=== PATIENT | female | born 1940 | race Caucasian/White ===

== ENCOUNTER 2018-03-18 19:34 | Observation (INO) | payer MEDICARE, OTHER ==
[~2018-03-18] VITALS: Ht 165.1 cm; Wt 73.7 kg
[2018-03-18] MEDS ORDERED: PANTOPRAZOLE 40 MG 10ML VIAL IV STA (19:54)
[2018-03-18] MEDS ORDERED: ASPIRIN 81 MG CHEW TAB PO ONE (20:00)
[2018-03-18 20:15] LABS: BASOPHILS % 0.2 % (0.0-1.0); EOSINOPHILS # (AUTO) 0.1 (0.0-0.4); EOSINOPHILS % 0.9 % (0.0-6.0); HEMATOCRIT 36.9 % (34.2-44.1); HEMOGLOBIN 11.9 g/dL (12.0-16.0); LYMPHOCYTES # (AUTO) 1.8 (1.0-3.2); LYMPHOCYTES % 14.9 % (18.0-39.1); MEAN CORPUSCULAR HEMOGLOBIN 25.9 pg (28-32); MEAN CORPUSCULAR HGB CONC 32.2 g/dL (31-35); MEAN CORPUSCULAR VOLUME 80.4 fL (81-99); MONOCYTES # (AUTO) 0.6 (0.2-0.8); MONOCYTES % 5.2 % (4.4-11.3); NEUTROPHILS # (AUTO) 9.3 (2.1-6.9); NEUTROPHILS % 78.4 % (38.7-80.0); PLATELET COUNT 294 x10e3/uL (140-360); RED BLOOD COUNT 4.59 x10e6/uL (3.6-5.1); RED CELL DISTRIBUTION WIDTH 13.5 % (11.7-14.4)
[2018-03-18 20:29] LABS: INR 0.91; PROTHROMBIN TIME 13.1 seconds (11.9-14.5)
[2018-03-18 20:30] LABS: PARTIAL THROMBOPLASTIN TIME 27.5 seconds (23.8-35.5)
[2018-03-18 20:39] LABS: ALANINE AMINOTRANSFERASE 10 IU/L (0-55); ALBUMIN 3.6 g/dL (3.5-5.0); ALBUMIN/GLOBULIN RATIO 1.2 (0.8-2.0); ALKALINE PHOSPHATASE 75 IU/L (40-150); ANION GAP 8.9 mmol/L (8-16); BLOOD UREA NITROGEN 21 mg/dL (7-26); BUN/CREATININE RATIO 18 (6-25); CALCIUM 10.2 mg/dL (8.4-10.2); CARBON DIOXIDE 34 mmol/L (22-29); CHLORIDE 100 mmol/L (98-107); CREATINE KINASE 74 IU/L (29-168); CREATININE, SERUM 1.14 mg/dL (0.57-1.11); EST GLOMERULAR FILTRATION RATE 46 ML/MIN (60-); GLUCOSE 120 mg/dL (74-118); SODIUM 140 mmol/L (136-145)
[2018-03-18 20:50] LABS: B-TYPE NATRIURETIC PEPTIDE2 111.3 pg/mL (0-100)
[2018-03-18 20:54] LABS: POTASSIUM 2.9 mmol/L (3.5-5.1)
[2018-03-18 20:58] LABS: BILIRUBIN,URINE NEGATIVE (NEGATIVE); CLARITY,URINE HAZY (CLEAR); COLOR,URINE YELLOW (YELLOW); KETONES,URINE NEGATIVE (NEGATIVE); LEUKOCYTE ESTERASE ,URINE 1+ (NEGATIVE); NITRITE,URINE NEGATIVE (NEGATIVE); PROTEIN,URINE DIPSTICK NEGATIVE (NEGATIVE); URINE UROBILINOGEN 0.2 mg/dL (0.2 - 1)
[2018-03-18 20:59] LABS: THYROID STIMULATING HORMONE 2.272 uIU/mL (0.350-4.940)
[2018-03-18 21:08] LABS: BACTERIA,URINE FEW /HPF; EPITHELIAL CELLS,URINE FEW /LPF; RBC,URINE 0-5 /HPF (0-5)
--- NOTE | 2018-03-18 21:17 | Diagnostic Imaging Report ---
EXAMINATION: CHEST SINGLE (PORTABLE) INDICATION: Chest pain, shortness of breath COMPARISON: None FINDINGS: TUBES and LINES: None. LUNGS: Lungs are well inflated. Lungs are clear. There is no evidence of pneumonia or pulmonary edema. PLEURA: No pleural effusion or pneumothorax. HEART AND MEDIASTINUM: The cardiomediastinal silhouette is unremarkable. BONES AND SOFT TISSUES: No acute osseous lesion. Soft tissues are unremarkable. UPPER ABDOMEN: No free air under the diaphragm. IMPRESSION: No acute thoracic abnormality. Signed by: Dr. Héctor Eller M.D. on 03/18/2018 9:14 PM
--- NOTE | 2018-03-18 21:20 | Diagnostic Imaging Report ---
EXAM: ABDOMEN COMP INCL UPR or DECUB DATE: 03/18/2018 8:35 PM Time stamp on exam: 2039 5:00 PM INDICATION: Bloated COMPARISON: None FINDINGS: LINES/TUBES: None BOWEL PATTERN: No evidence for clear obstruction. However, there are several proximal small bowel loops that appear distended, the largest measuring 3.8 cm in diameter. SOFT TISSUES: No abnormal calcifications. No mass effect. LUNG BASES: The lung bases are clear BONES: Degenerative changes of the lower lumbar spine IMPRESSION: 1. Distention of the proximal small bowel and air fluid level of the stomach suggests slow transit time. Correlation for gastroenteritis is recommended. 2. No clear evidence of obstruction at this time. If continued clinical concern, CT of the abdomen and pelvis can be obtained after IV contrast administration Signed by: Dr. Héctor Eller M.D. on 03/18/2018 9:16 PM
--- NOTE | 2018-03-18 21:25 | Diagnostic Imaging Report ---
Examination: CT BRAIN WITHOUT CONTRAST History:Dizziness for one day. Lightheadedness. Comparison studies:None Technique: Axial images were obtained from the skull base to the vertex. Coronal and sagittal images reconstructed from the axial data. Dose modulation, iterative reconstruction, and/or weight based adjustment of the mA/kV was utilized to reduce the radiation dose to as low as reasonably achievable. Intravenous contrast: None Findings: Scalp: No abnormalities. 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 No fractures, blastic or lytic lesions. Brain sulci: Appropriate for age. Ventricles: No hydrocephalus. Extra-axial space: No abnormalities. Parenchyma: Absence of the corpus callosum with a high riding third ventricle and colpocephalic appearance of the lateral ventricles. There is hypoattenuation in the inferior and mid yamini, likely representing a chronic lacunar infarct, white matter microvascular ischemic change or less likely demyelinating disease. No masses, hemorrhage, or acute or chronic cortical based vascular insults.. Sellar/suprasellar region: No abnormalities. Craniocervical junction: Patent foramen magnum. No Chiari one malformation. Incidental findings: None. Impression: 1. No acute intracranial abnormalities. 2. Agenesis of the corpus callosum. 3. Findings as described above in the yamini could represent a chronic lacunar infarct, microvascular ischemic change or less likely demyelinating disease. Signed by: Dr. Kasie Diop M.D. on 03/18/2018 9:21 PM
[2018-03-18] MEDS ORDERED: KCL 20MEQ/.9 SOD CHL 1,000 ML IV ONE (21:45)
[2018-03-18] MEDS: CEFTRIAXONE SOD 1 GM VIAL IV SCH (21:56)
--- NOTE | 2018-03-18 23:04 | Diagnostic Imaging Report ---
EXAM: CT Abdomen and Pelvis WITHOUT contrast INDICATION: Abdominal pain COMPARISON: None. TECHNIQUE: Abdomen and pelvis were scanned utilizing a multidetector helical scanner from the lung base to the pubic symphysis without administration of IV contrast. Absence of intravenous contrast decreases sensitivity for detection of focal lesions and vascular pathology. Coronal and sagittal reformations were obtained. Routine protocol was performed. IV CONTRAST: None. ORAL CONTRAST: None RADIATION DOSE: Total DLP: 492.47 mGy*cm Estimated effective dose: (DLP x 0.015 x size factor) mSv COMPLICATIONS: None FINDINGS: LINES and TUBES: None. LOWER THORAX: Unremarkable HEPATOBILIARY: No focal hepatic lesions. No biliary ductal dilation. GALLBLADDER: No radio-opaque stones or sludge. No wall thickening. SPLEEN: No splenomegaly. PANCREAS: No focal masses or ductal dilatation. ADRENALS: No adrenal nodules KIDNEYS/URETERS: No hydronephrosis. No cystic or solid mass lesions. No stones. GI TRACT: No abnormal distention, wall thickening, or evidence of bowel obstruction. Appendix is normal. PELVIC ORGANS/BLADDER: There are postop changes of hysterectomy and bilateral oophorectomies. LYMPH NODES: Reactive lymphadenopathy and the mesenteric root adjacent to multiple small bowel loops. Otherwise, no evidence of retroperitoneal or pelvic adenopathy. VESSELS: There is mild atherosclerotic disease in the aorta and major arterial branches. PERITONEUM / RETROPERITONEUM: No free air or fluid. BONES: Unremarkable. SOFT TISSUES: Unremarkable. IMPRESSION: 1. Findings are compatible with enteritis with reactive lymph nodes versus mesenteric adenitis. 2. Otherwise, no additional findings to suggest acute intra-abdominal or pelvic abnormality. Signed by: Dr. Héctor Eller M.D. on 03/18/2018 11:01 PM
[2018-03-18] MEDS ORDERED: MOTRIN800 MG PO (23:15)
[2018-03-18] MEDS ORDERED: BISOPROLOL-HCT1 EAC1 PO (23:15)
[2018-03-18] MEDS ORDERED: FUROSEMIDE20 MG PO (23:15)
[2018-03-18] MEDS ORDERED: PRAMIPEXOLE DIHY1 MG PO (23:15)
[2018-03-18] MEDS ORDERED: MELOXICAM15 MG PO (23:15)
[2018-03-18] MEDS ORDERED: POTASSIUM CHLORIDE 20 MEQ TAB CR PO STA (23:16)
[2018-03-18] MEDS ORDERED: POTASSIUM CHLORIDE 20 MEQ TAB CR PO ONE (23:18)
[2018-03-18] MEDS: ENOXAPARIN SODIUM INJ 100 MG/ML SYR SC SCH (23:23)
[2018-03-18] MEDS ORDERED: ZYMAXID2.5 ML OU (23:27)
[2018-03-18] MEDS ORDERED: OMNIPRED10 ML OD (23:27)
[2018-03-18] MEDS ORDERED: CELEBREX200 MG PO (23:27)
[2018-03-19] VITALS (9 sets, daily range): BP systolic 115–150; BP diastolic 56–72
[2018-03-19] MEDS: ONDANSETRON HCL INJ 2 MG/ML VIAL IV PRN ×2 (04:45→10:06)
[2018-03-19] MEDS: MORPHINE SULFATE 2 MG/ML SYR IV PRN ×3 (04:52→20:15)
[2018-03-19 06:19] LABS: BASOPHILS % 0.3 % (0.0-1.0); EOSINOPHILS # (AUTO) 0.2 (0.0-0.4); EOSINOPHILS % 1.5 % (0.0-6.0); HEMATOCRIT 32.9 % (34.2-44.1); HEMOGLOBIN 10.7 g/dL (12.0-16.0); LYMPHOCYTES # (AUTO) 1.4 (1.0-3.2); LYMPHOCYTES % 14.4 % (18.0-39.1); MEAN CORPUSCULAR HEMOGLOBIN 26.4 pg (28-32); MEAN CORPUSCULAR HGB CONC 32.5 g/dL (31-35); MONOCYTES # (AUTO) 0.5 (0.2-0.8); MONOCYTES % 5.4 % (4.4-11.3); NEUTROPHILS # (AUTO) 7.7 (2.1-6.9); NEUTROPHILS % 78.1 % (38.7-80.0); PLATELET COUNT 216 x10e3/uL (140-360); RED BLOOD COUNT 4.06 x10e6/uL (3.6-5.1); RED CELL DISTRIBUTION WIDTH 13.6 % (11.7-14.4)
[2018-03-19 06:48] LABS: CREATINE KINASE 52 IU/L (29-168)
[2018-03-19 07:25] LABS: ALANINE AMINOTRANSFERASE 9 IU/L (0-55); ALBUMIN/GLOBULIN RATIO 1.2 (0.8-2.0); ALKALINE PHOSPHATASE 67 IU/L (40-150); ANION GAP 8.1 mmol/L (8-16); BLOOD UREA NITROGEN 17 mg/dL (7-26); BUN/CREATININE RATIO 21 (6-25); CALCIUM 8.4 mg/dL (8.4-10.2); CARBON DIOXIDE 30 mmol/L (22-29); CHLORIDE 103 mmol/L (98-107); CHOL/HDL RATIO 4.7 (3.0-3.6); CHOLESTEROL 145 MD/DL (0-199); CREATININE, SERUM 0.81 mg/dL (0.57-1.11); EST GLOMERULAR FILTRATION RATE > 60 ML/MIN (60-); GLUCOSE 102 mg/dL (74-118); HDL CHOLESTEROL 31 MG/DL (40-60); LDL CHOLESTEROL 87 MG/DL (60-130); POTASSIUM 3.1 mmol/L (3.5-5.1); SODIUM 138 mmol/L (136-145); TRIGLYCERIDES 133 MG/DL (0-149)
[2018-03-19] MEDS: CEFTRIAXONE SOD 1 GM VIAL IV SCH ×2 (10:06→22:21)
[2018-03-19] MEDS: ENOXAPARIN SODIUM INJ 100 MG/ML SYR SC SCH ×2 (10:06→22:21)
[2018-03-19] MEDS: ASPIRIN 81 MG ENTERIC COATED PO SCH (10:06)
--- NOTE | 2018-03-19 11:23 | Diagnostic Imaging Report ---
Ventilation/perfusion lung scan Clinical Information: 77 F with dyspnea, SOB and pleuritic chest pain; elevated D-dimer Comparison: Chest radiograph 03/18/2018 Discussion: Xenon-133 gas 13.2 mCi was administered via inhalation. Dynamic images of the lungs in the posterior projection were obtained through single breath, equilibrium, and washout phases. Distribution of tracer activity is irregular throughout the lungs. There are no segmental ventilatory defects. Washout of tracer is diffusely delayed with diffuse air trapping. Perfusion images of the lungs were obtained in multiple projections following intravenous administration of approximately 6.1 mCi of Tc-99m MAA. Distribution of tracer is irregular throughout the lungs. The contours of the lungs are well demarcated. There are no segmental perfusion defects of any size. The cardiomediastinal silhouette is unremarkable. Impression: Scan findings represent a VERY LOW probability for acute pulmonary embolic disease based on the PIOPED II criteria. Scan evidence of obstructive lung disease. Signed by: Dr. Sindhu Hein M.D. on 03/19/2018 11:20 AM
[2018-03-19] MEDS ORDERED: POTASSIUM CHLORIDE 20 MEQ TAB CR PO STA (12:14)
--- NOTE | 2018-03-19 13:40 | History and Physical ---
Fantasma is a 77-year-old woman who presented to the emergency room on the afternoon of the with complaint of neck, shoulder and arm pain. HISTORY OF PRESENT ILLNESS: Patient reports she saw Dr. Angela in the office last week for these symptoms and she cannot remember the name of his diagnosis, but he gave her ibuprofen 800 mg that initially helped, but then she felt that something was given her "drunken feeling," then her shoulders and arms began to hurt more. PAST MEDICAL HISTORY: Significant for diagnosis of irritable bowel syndrome several years ago. Dr. Main has given her dicyclomine for this. She takes half teaspoon with each meal. She had remote hysterectomy and in 1990 had removal an ovary, which had large benign tumor that she reports is weighing 16 pounds. She denies diabetes. She has been using bisoprolol 5/6.25 daily for elevated blood pressure readings and she has had some ankle swelling for which she takes furosemide 20 mg twice a day at home. She has used pramipexole for restless leg, but does not currently use it. 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 REVIEW OF SYSTEMS: Cardiac; she does not know of any cardiac problem, never had chest pain. PHYSICAL EXAMINATION GENERAL: At this time, she is a pleasant and alert woman who is anxious and sad. Reports she has been crying this morning. VITAL SIGNS: Blood pressure 124/58, pulse is 77 and regular. HEENT: Unremarkable. NECK: No jugular venous distention or bruits. THORAX: Heart sounds S1, S2 are equal. No murmurs. RESPIRATORY: Clear. ABDOMEN: Protuberant with large healed midline incision. Active bowel sounds. Nontender. EXTREMITIES: No cyanosis, clubbing, or edema at this time. PERTINENT STUDIES: Urinalysis shows 11 to 20 white cells per high-power field with leukocyte esterase positive. Her D-dimer was elevated, but her V/Q scan shows very low probability of embolus. Troponins are normal. BNP is slightly elevated at 111. Glucose is 120 and 102. CAT scan of the head shows possible yamini defect. CAT scan of the abdomen shows regional enteritis with reactive lymphadenopathy. Chest x-ray is unremarkable. ASSESSMENT 1. Cervical radiculopathy. 2. Enteritis. 3. Urinary tract infection. 4. Rule out congestive heart failure. PLAN: Will consult Dr. Angela for the cervical spine problem and Dr. Main to address the enteritis, previously called irritable bowel syndrome. She is receiving ceftriaxone for urinary tract infection and repleting potassium for the original hypokalemia of potassium 2.9, today is 3.1. Further management based on clinical course. Job#: [id number] PEPITO cc:DR. AIRAM MAIN
[2018-03-19] MEDS: BISOPROLOL FUMARATE 10 MG TAB PO SCH (14:24)
[2018-03-19] MEDS: DICYCLOMINE HCL 10 MG CAP PO SCH ×3 (14:24→20:15)
[2018-03-19 16:32] LABS: CREATINE KINASE 54 IU/L (29-168)
[2018-03-19] MEDS ORDERED: SODIUM CHLORIDE 0.9% 250ML 250 ML ONE (22:26)
[2018-03-19] MEDS: METRONIDAZOLE 500MG/NS 100ML 100 ML IV SCH (22:33)
--- NOTE | 2018-03-19 23:27 | Consultation ---
DATE OF CONSULTATION: March 19, 2018 GASTROENTEROLOGY CONSULTATION REFERRING PHYSICIAN: Dr. Choudhary. REASON FOR CONSULTATION: Enteritis, abnormal CT abdomen. HISTORY OF PRESENT ILLNESS: Ms. Meek is a very pleasant 77-year-old woman who follows with my colleague, Dr. Ham. She is being treated for irritable bowel by both Dr. Ham and Dr. Thomas, her primary care physician. She notes that if she avoids triggers such as tomatoes then she has fairly normal bowels. She is maintained on liquid dicyclomine and takes this with improvement in her symptoms too. Over the past month however she has been feeling more bloated. She is actually in the ER with neck, shoulder, arm pain and shortness of breath. She is noted to have cervical radiculopathy. Dr. Angela has seen her. She denies any diarrhea or bowel habit change unless she eats her trigger foods. She has not had any bleeding, nausea or vomiting. She feels generally bloated like she has gas or is but does not pass excessive gas and does not have any current abdominal discomfort. PAST MEDICAL HISTORY 1. Irritable bowel. 2. Restless legs. 3. Lower extremity swelling. 4. Hysterectomy. 5. Oophorectomy. 6. Hypertension. MEDICATION AND ALLERGIES: REVIEWED, PLEASE SEE MAR, MEDICATION RECONCILIATION FORM. SOCIAL: No alcohol, tobacco, or illicit substance. FAMILY HISTORY: Noncontributory. REVIEW OF SYSTEMS: A 10-system review is positive as mentioned in HPI, otherwise unremarkable. PHYSICAL EXAMINATION GENERAL: Pleasant, alert, oriented, in no acute distress. HEENT: Pupils are equal, round, and reactive to light. NECK: Supple. LUNGS: Clear. CARDIOVASCULAR: S1, S2. ABDOMEN: Soft but a little bit protuberant. It is tympanitic consistent with gas. She is nontender. Normal bowel sounds. No organomegaly. EXTREMITIES: No clubbing or cyanosis. PSYCH: Calm, cooperative. NEUROLOGIC: Nonfocal. HEM/ONC: No bruising or adenopathy. Electronic record reviewed for laboratory and radiologic studies as well as history. ASSESSMENT 1. Enteritis with mild nonspecific lymphadenopathy. 2. Cervical radiculopathy. 3. Urinary tract infection. 4. Edema. PLAN: At the current time, I am not sure if this is an acute or chronic problem. Her GI symptoms certainly sound like irritable bowel syndrome. She does have significant gas which could be an overgrowth type problem. She also is noted to be anemic which is normocytic. Apparently has had scopes in the past. I would like to add Flagyl to her antibiotics and monitor her progress. It may be that we need to repeat the imaging as an outpatient or send off specialized testing for possible underlying inflammatory bowel. It is also noted that on her KUB she had gastric distention. This did not look like gastroenteritis and slow transit. Reglan may be of some benefit, although associate without a formal diagnosis. We will see how she does with addition of Flagyl. Thank you very much for asking us to see Ms. Meek. Any questions or concerns, please do not hesitate to contact me. Will follow with you. Job#: [id number] CF
[2018-03-20] VITALS: BP 146/65
[2018-03-20 04:00] VITALS: BP 131/60
[2018-03-20] MEDS: METRONIDAZOLE 500MG/NS 100ML 100 ML IV SCH (06:20)
[2018-03-20] MEDS: MORPHINE SULFATE 2 MG/ML SYR IV PRN (06:20)
[2018-03-20 06:34] LABS: BASOPHILS % 0.4 % (0.0-1.0); EOSINOPHILS # (AUTO) 0.2 (0.0-0.4); HEMATOCRIT 33.9 % (34.2-44.1); HEMOGLOBIN 10.9 g/dL (12.0-16.0); LYMPHOCYTES # (AUTO) 1.9 (1.0-3.2); LYMPHOCYTES % 26.2 % (18.0-39.1); MEAN CORPUSCULAR HEMOGLOBIN 26.4 pg (28-32); MEAN CORPUSCULAR HGB CONC 32.2 g/dL (31-35); MEAN CORPUSCULAR VOLUME 82.1 fL (81-99); MONOCYTES # (AUTO) 0.4 (0.2-0.8); MONOCYTES % 5.5 % (4.4-11.3); NEUTROPHILS # (AUTO) 4.8 (2.1-6.9); NEUTROPHILS % 65.4 % (38.7-80.0); PLATELET COUNT 211 x10e3/uL (140-360); RED BLOOD COUNT 4.13 x10e6/uL (3.6-5.1); RED CELL DISTRIBUTION WIDTH 13.4 % (11.7-14.4)
[2018-03-20] MEDS: DICYCLOMINE HCL 10 MG CAP PO SCH (09:00)
[2018-03-20] MEDS: BISOPROLOL FUMARATE 10 MG TAB PO SCH (09:00)
[2018-03-20] MEDS: ASPIRIN 81 MG ENTERIC COATED PO SCH (09:00)
[2018-03-20 09:03] VITALS: BP 140/62
[2018-03-20] MEDS: CEFTRIAXONE SOD 1 GM VIAL IV SCH (09:45)
[2018-03-20] MEDS: ENOXAPARIN SODIUM INJ 100 MG/ML SYR SC SCH (09:55)
[2018-03-20 10:22] LABS: ANION GAP 26.1 mmol/L (8-16); BLOOD UREA NITROGEN 11 mg/dL (7-26); BUN/CREATININE RATIO 15 (6-25); CALCIUM 7.6 mg/dL (8.4-10.2); CARBON DIOXIDE 14 mmol/L (22-29); CHLORIDE 104 mmol/L (98-107); CREATININE, SERUM 0.74 mg/dL (0.57-1.11); EST GLOMERULAR FILTRATION RATE > 60 ML/MIN (60-); GLUCOSE 89 mg/dL (74-118); POTASSIUM 4.1 mmol/L (3.5-5.1); SODIUM 140 mmol/L (136-145)
[2018-03-20 12:18] VITALS: BP 147/65
[2018-03-20] MEDS ORDERED: FLAGYL500 MG PO (13:32)
--- NOTE | 2018-03-20 16:13 | Discharge Summary ---
HISTORY OF PRESENT ILLNESS: Ms. Meek is a complex 77-year-old woman who presented to the emergency room on the afternoon of the with multiple medical problems including shoulder pain, abdominal discomfort and the finding of hypokalemia. HOSPITAL COURSE: Patient was given potassium supplementation due to the fact she was taking furosemide at home. She was given analgesics for neck and shoulder pains. Her urinalysis suggested urinary tract infection, and she was given Rocephin. However, those cultures proved to be negative. Repeat potassium value showed that her potassium has now returned to normal. She was seen in consultation by Dr. Angela, who felt that she needed physical therapy for her neck and shoulder pains. She will continue on nonsteroidal anti-inflammatory. She was seen in consultation by Dr. Levy, who reviewed the CAT scan of the abdomen and felt a trial of Flagyl for possible enteritis would be recommended. Today the patient is feeling some better, still with some shoulder discomfort and some lack of appetite, but she is discharged to home to add Flagyl 500 mg every 8 hours for 1 week and continue her other medicines with the exception of furosemide. She will follow up with Dr. Levy and Dr. Angela in 7 to [address] Thomas on a regular basis. ADDENDUM: Echocardiogram showed normal left ventricular function with mild mitral regurgitation. She does not have a general diagnosis of congestive heart failure. DISCHARGE DIAGNOSES: 1. Neck and shoulder pain. 2. Hypokalemia. 3. Enteritis. 4. Hypertension. MÓNICA CONDE MD Job#: [id number] EV cc:DO CHRISTI KAPLAN MD RACHEL SCHIESSER, MD
--- OUTSIDE RECORDS SUMMARY | 2018-03-27 11:52 | XMS REPORT ---
Author Author [facility] Address Unknown Phone Unavailable Care Team Providers Care [employer] Name Role Phone Sneha CONDE Unavailable Unavailable Problems This patient has no known problems. Allergies, Adverse Reactions, Alerts This patient has no known allergies or adverse reactions. Medications This patient has no known medications. Results Test Description Test Time Test Comments Text Results Atomic Results Result Comments VQ LUNG SCAN VENT PERFUSION 2018-03-19 11:17:00 [place] [address] Patient Name: FATOUMATA SOTO MR #: [id number] : 1940 Age/Sex: 77/F Req #: [id number] [facility] Physician: MÓNICA CONDE MD Ordered by: DANY TENORIO MD Report #: [id number] Location: MED/SURG Room/Bed: [facility] Procedure: [id number] NM/VQ LUNG SCAN VENT PERFUSION Exam Date: Exam Time: REPORT STATUS: Signed Ventilation/perfusion lung scan Clinical Information: 77 F with dyspnea, SOB and pleuritic chest pain; elevated D-dimer Comparison: Chest radiograph 03/18/2018 Discussion: Xenon-133 gas 13.2 mCi was administered via inhalation. Dynamic images of the lungs in the posterior projection were obtained through single breath, equilibrium, and washout phases. Distribution of tracer activity is irregular throughout the lungs. There are no segmental ventilatory defects. Washout of tracer is diffusely delayed with diffuse air trapping. Perfusion images of the lungs were obtained in multiple projections following intravenous administration of approximately 6.1 mCi of Tc-99m MAA. Distribution of tracer is irregular throughout the lungs. The contours of the lungs are well demarcated. There are no segmental perfusion defects of any size. The cardiomediastinal silhouette is unremarkable. Impression: Scan findings represent a VERY LOW probability for acute pulmonary embolic disease based on the PIOPED II criteria. Scan evidence of obstructive lung disease. Signed by: Dr. Hira Hein M.D. on 03/19/2018 11:20 AM Dictated By: HIRA HEIN MD Tawanna ctronically Signed By: HIRA HEIN MD on 03/19/181119 Transcribed By: VALERIA on 03/19/181119 COPY TO: DANY TENORIO MD CT ABDOMEN/PELVIS WO 2018-03-18 22:50:00 [place] [address] Patient Name: FATOUMATA SOTO MR #: [id number] : 1940 Age/Sex: 77/F Req #: [id number] Adm Physician: Ordered by: DANY TENORIO MD Report #: [id number] Location: ER Room/Bed: Procedure: [id number] CT/CT ABDOMEN/PELVIS WO Exam Date: 03/18/18 Exam Time: 2156 REPORT STATUS: Signed EXAM: CT Abdomen and Pelvis WITHOUT contrast INDICATION: Abdominal pain COMPARISON: None. TECHNIQUE: Abdomen and pelvis were scanned utilizing a multidetector helical scanner from the lung base to the pubic symphysis without administration of IV contrast. Absence of intravenous contrast decreases sensitivity for detection of focal lesions and vascular pathology. Coronal and sagittal reformations were obtained. Routine protocol was performed. IV CONTRAST: None. ORAL CONTRAST: None RADIATION DOSE: Total DLP: 492.47 mGy*cm Estimated effective dose: (DLP x 0.015 x size factor) mSv COMPLICATIONS: None FINDINGS: LINES and TUBES: None. LOWER THORAX: Unremarkable HEPATOBILIARY: No focal hepatic lesions. No biliary ductal dilation. GALLBLADDER: No radio-opaque stones or sludge. No wall thickening. SPLEEN: No splenomegaly. PANCREAS: No focal masses or ductal dilatation. ADRENALS: No adrenal nodules KIDNEYS/URETERS: No hydronephrosis. No cystic or solid mass lesions. No stones. GI TRACT: No abnormal distention, wall thickening, or evidence of bowel obstruction. Appendix is normal. PELVIC ORGANS/BLADDER: There are postop changes of hysterectomy and bilateral oophorectomies. LYMPH NODES: Reactive lymphadenopathy and the mesenteric root adjacent to multiple small bowel loops. Otherwise, no evidence of retroperitoneal or pelvic adenopathy. VESSELS: There is mild atherosclerotic disease in the aorta and major arterial branches. PERITONEUM / RETROPERITONEUM: No free air or fluid. BONES: Unremarkable. SOFT TISSUES: Unremarkable. IMPRESSION: 1. Findings are compatible with enteritis with reactive lymph nodes versus mesenteric adenitis. 2. Otherwise, no additional findings to suggest acute intra- abdominal or pelvic abnormality. Signed by: Dr. Héctor Eller M.D. on 03/18/2018 11:01 PM Dictated By: HÉCTOR ORDOÑEZ MD 00 Transcribed By: VALERIA on 03/18/182300 COPY TO: DANY TENORIO MD CT BRAIN WO 2018-03-18 21:18:00 [place] [address] Patient Name: FATOUMATA SOTO MR #: [id number] : 1940 Age/Sex: 77/F Req #: [id number] Adm Physician: Ordered by: DANY TENORIO MD Report #: [id number] Location: ER Room/Bed: Procedure: [id number] CT/CT BRAIN WO Exam Date: 03/18/18 Exam Time: 2019 REPORT STATUS: Signed Examination: CT BRAIN WITHOUT CONTRAST History:Dizziness for one day. Lightheadedness. Comparison studies:None Technique: Axial images were obtained from the skull base to the vertex. Coronal and sagittal images reconstructed from the axial data. Dose modulation, iterative reconstruction, and/or weight based adjustment of the mA/kV was utilized to reduce the radiation dose to as low as reasonably achievable. Intravenous contrast: None Findings: Scalp: No abnormalities. 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 No fractures, blastic or lytic lesions. Brain sulci: Appropriate for age. Ventricles: No hydrocephalus. Extra-axial space: No abnormalities. Parenchyma: Absence of the corpus callosum with a high riding third ventricle and c olpocephalic appearance of the lateral ventricles. There is hypoattenuation in the inferior and mid yamini, likely representing a chronic lacunar infarct, white matter microvascular ischemic change or less likely demyelinating disease. No masses, hemorrhage, or acute or chronic cortical based vascular insults.. Sellar/suprasellar region: No abnormalities. Craniocervical junction: Patent foramen magnum. No Chiari one malformation. Incidental findings: None. Impression: 1. No acute intracranial abnormalities. 2. Agenesis of the corpus callosum. 3. Findings as de scribed above in the yamini could represent a chronic lacunar infarct, microvascular ischemic change or less likely demyelinating disease. Signed by: Dr. Kasie Diop M.D. on 03/18/2018 9:21 PM Dictated By: KASIE WEST MD 20 Transcribed By: VALERIA on 03/18/182120 COPY TO: DANY TENORIO MD ABDOMEN COMP INCL UPR or 2018-03-18 21:14:[address] [place], [place] [address] Patient Name: FATOUMATA SOTO MR #: [id number] : 1940 Age/Sex: 77/F Req #: [id number] Adm Physician: Ordered by: DANY TENORIO MD Report #: [id number] Location: ER Room/Bed: Procedure: [id number] DX/ABDOMEN COMP INCL UPR or DECUB Exam Date: 03/18/18 Exam Time: 2044 REPORT STATUS: Signed EXAM: ABDOMEN COMP INCL UPR or DECUB DATE: 03/18/2018 8:35 PM Time stamp on exam: 2039 5:00 PM INDICATION: Bloated COMPARISON: None FINDINGS: LINES/TUBES: None BOWEL PATTERN: No evidence for clear obstruction. However, there are several proximal small bowel loops that appear distended, the largest measuring 3.8 cm in diameter. SOFT TISSUES: No abnormal calcifications. No mass effect. LUNG BASES: The lung bases are clear BONES: Degenerative changes of the lower lumbar spine IMPRESSION: 1. Distention of the proximal small bowel and air fluid level of the stomach suggests slow transit time. Correlation for gastroenteritis is recommended. 2. No clear evidence of obstruction at this time. If continued clinical concern, CT of the abdomen and pelvis can be obtained after IV contrast administration Signed by: Dr. Héctor Eller M.D. on 03/18/2018 9:16 PM Dictated By: HÉCTOR ORDOÑEZ MD 15 Transcribed By: VALERIA on 03/18/182115 COPY TO: DANY TENORIO MD CHEST SINGLE (PORTABLE) 2018-03-18 21:14:00 [facility] [address] [place], [place] [address] Patient Name: FATOUMATA SOTO MR #: [id number] : 1940 Age/Sex: 77/F Req #: [id number] [facility] Physician: Ordered by: DANY TENORIO MD Report #: [id number] Location: ER Room/Bed: Procedure: [id number] DX/CHEST SINGLE (PORTABLE) Exam Date: 03/18/18 Exam Time: 2024 REPORT STATUS: Signed EXAMINATION: CHEST SINGLE (PORTABLE) INDICATION: Chest pain, shortness of breath COMPARISON: None FINDINGS: TUBES and LINES: None. LUNGS: Lungs are well inflated. Lungs are clear. There is no evidence of pneumonia or pulmonary edema. PLEURA: No pleural effusion or pneumothorax. HEART AND MEDIASTINUM: The cardiomediastinal silhouette is unremarkable. BONES AND SOFT TISSUES: No acute osseous lesion. Soft tissues are unremarkable. UPPER ABDOMEN: No free air under the diaphragm. IMPRESSION: No acute thoracic abnormality. Signed by: Dr. Héctor Eller M.D. on 03/18/2018 9:14 PM Dictated By: HÉCTOR ORDOÑEZ MD 13 Transcribed By: VALERIA on 03/18/182113 COPY TO: DANY TENORIO MD
== END 2018-03-20 16:06 | disposition home or self-care (01) ==
LOC: ER 19:34 → INTOOBSV 23:51 → ERHOLD 23:51 → MED/SURG 03-19 01:14
PROVIDERS: ADMIT Internal Medicine Cardiovascular Disease; ATTEND Internal Medicine Cardiovascular Disease
DX: M54.12 Radiculopathy, cervical region (principal); R06.00 Dyspnea, unspecified; R07.9 Chest pain, unspecified; N30.00 Acute cystitis without hematuria; E87.6 Hypokalemia; K58.9 Irritable bowel syndrome, unspecified; Z88.0 Allergy status to penicillin; Z91.013 Allergy to seafood; Z91.048 Other nonmedicinal substance allergy status; R59.1 Generalized enlarged lymph nodes; D64.9 Anemia, unspecified; M25.512 Pain in left shoulder; M25.511 Pain in right shoulder; E86.0 Dehydration; I10 Essential (primary) hypertension
CPT/HCPCS: 36415 ×3; 70450; 71045; 74176; 78582; 80048; 80053 ×2; 80061; 81001; 82550 ×2; 82553 ×2; 83605; 83735; 83880; 84443; 84484 ×2; 85025 ×3; 85379; 85610; 85730; 87040; 87086; 93005; 93306; 99284; A9540; A9558; G0378 ×3; J0696 ×3; J1650 ×3; J2270 ×2; J2405; J7050

== ENCOUNTER 2024-03-10 13:14 | Emergency (ER) | payer MEDICARE, OTHER ==
[~2024-03-10] VITALS: Ht 165.1 cm; Wt 67.2 kg
[~2024-03-10 13:14] MED LIST: ACYCLOVIR800 MG PO; BISOPROLOL-HCT1 EAC1 PO; CELEBREX200 MG PO; CLEOCIN HCL300 MG PO; FLAGYL500 MG PO; FUROSEMIDE20 MG PO; MEDROL4 M2 PO; MELOXICAM15 MG PO; MOTRIN800 MG PO; OMNIPRED10 ML OD; PRAMIPEXOLE DIHY1 MG PO; ULTRAM 50MG50 MG PO; ZYMAXID2.5 ML OU
[2024-03-10] MEDS ORDERED: DICYCLOMINE HCL20 MG PO (13:44)
[2024-03-10 14:03] VITALS: PULSE 68; RESP 16; TEMP 98.1; O2SAT 97
== END 2024-03-10 14:03 | disposition home or self-care (01) ==
LOC: FSED 13:17
DX: S50.811A Abrasion of right forearm, initial encounter (principal); S60.512A Abrasion of left hand, initial encounter; S60.511A Abrasion of right hand, initial encounter; W10.8XXA Fall (on) (from) other stairs and steps, initial encounter; Y93.01 Activity, walking, marching and hiking; Y92.89 Other specified places as the place of occurrence of the external cause; I10 Essential (primary) hypertension; G25.81 Restless legs syndrome; Z87.19 Personal history of other diseases of the digestive system
CPT/HCPCS: 99283